=== PATIENT | male | born 1990 | race African-American/Black ===

== ENCOUNTER 2018-02-16 01:26 | Emergency (ER) | payer MEDICAID ==
[~2018-02-16] VITALS: Ht 172.7 cm; Wt 68.0 kg
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
[2018-02-16] MEDS ORDERED: LIDOCAINE 1%-EPI 1:100,000 20 ML VIAL TP ONE (02:00)
[2018-02-16] MEDS ORDERED: LIDOCAINE 1%-EPI 1:100,000 20 ML VIAL ONE (02:04)
--- NOTE | 2018-02-16 02:10 | NUR ---
SUTURE TRAY SET UP BY BEDSIDE
[2018-02-16 02:49] VITALS: BP 135/80
--- NOTE | 2018-02-16 02:52 | NUR ---
Patient discharged to home in stable condition. Written and verbal after care instructions given. Patient verbalizes understanding of instruction. Pt ambulatory with a steady gait
== END 2018-02-16 02:51 | disposition home or self-care (01) ==
LOC: ER 01:31
DX: S01.112A Laceration without foreign body of left eyelid and periocular area, initial encounter (principal); Y04.0XXA Assault by unarmed brawl or fight, initial encounter; Y93.89 Activity, other specified; Y92.89 Other specified places as the place of occurrence of the external cause; Y99.8 Other external cause status
CPT/HCPCS: 12013; 99283; A4606; A6402; A6403; J3490; Z7610